=== PATIENT | female | born 1970 | race Caucasian/White ===

== ENCOUNTER 2019-02-26 19:21 | Emergency (ER) | payer OTHER ==
[~2019-02-26] VITALS: Ht 165.1 cm; Wt 61.2 kg
[~2019-02-26 19:21] MED LIST: AMOXICILLIN500 M1 PO; AZITHROMYCIN 2250 MG PO; BACTRIM DS TAB1 EACH PO; IBUPROFEN 800800 M1 PO; IBUPROFEN 800800 MG PO; NOHOMEMEDICATIONS; NORCO 5-325 TA1 EACH PO; PHENERGAN-CODE120 ML PO; PREDNISONE 20 M20 M1 PO; ULTRACET TABLE1 EACH PO; ULTRAM 50MG TAB50 MG PO
[2019-02-26 19:30] VITALS: BP 137/73
[2019-02-26] MEDS ORDERED: ACTICIN 5% CREA60 G1 TOP (20:00)
[2019-02-26] MEDS ORDERED: HYDROXYZINE HCL25 M1 PO (20:00)
== END 2019-02-26 20:12 | disposition home or self-care (01) ==
LOC: M.ERS 19:21
DX: B86 Scabies (principal); F17.210 Nicotine dependence, cigarettes, uncomplicated; Z90.710 Acquired absence of both cervix and uterus

== ENCOUNTER 2019-03-19 16:14 | Emergency (ER) | payer OTHER ==
[~2019-03-19] VITALS: Ht 160 cm; Wt 68.0 kg
[~2019-03-19 16:14] MED LIST changes: +ACTICIN 5% CREA60 G1 TOP; +HYDROXYZINE HCL25 M1 PO
[2019-03-19 16:49] VITALS: BP 147/82
[2019-03-19] MEDS ORDERED: ACTICIN 5% CREA60 G1 TOP (16:58)
== END 2019-03-19 16:49 | disposition home or self-care (01) ==
LOC: M.ERS 16:14
DX: Z20.7 Contact with and (suspected) exposure to pediculosis, acariasis and other infestations (principal); L53.9 Erythematous condition, unspecified; F17.210 Nicotine dependence, cigarettes, uncomplicated; Z90.710 Acquired absence of both cervix and uterus

== ENCOUNTER 2019-04-13 14:15 | Emergency (ER) | payer OTHER ==
[~2019-04-13] VITALS: Ht 160 cm; Wt 65.8 kg
[2019-04-13 15:17] VITALS: BP 127/80
== END 2019-04-13 15:18 | disposition home or self-care (01) ==
LOC: M.ERS 14:15
DX: Z02.79 Encounter for issue of other medical certificate (principal); F17.210 Nicotine dependence, cigarettes, uncomplicated; Z90.710 Acquired absence of both cervix and uterus

== ENCOUNTER 2019-09-22 15:17 | Emergency (ER) | payer OTHER ==
[~2019-09-22] VITALS: Ht 160 cm; Wt 65.8 kg
[2019-09-22 15:47] LABS: URINE BILIRUBIN NEGATIVE (Negative); URINE BLOOD TRACE (Negative); URINE CLARITY CLEAR; URINE COLOR YELLOW; URINE GLUCOSE-RANDOM NEGATIVE (Negative); URINE KETONES NEGATIVE (Negative); URINE LEUKOCYTES-REFLEX 1+ (Negative); URINE NITRITE-REFLEX NEGATIVE (Negative); URINE PROTEIN NEGATIVE (Negative); URINE SPECIFIC GRAVITY 1.025 (1.005-1.030); URINE UROBILINOGEN 0.2 E.U./dl (0.2-1.0)
[2019-09-22 15:56] LABS: SQUAMOUS 4-10 Moderate /LPF (0-3)
[2019-09-22 15:57] LABS: URINE RBC 0-2 Rare /HPF (0-2); URINE WBC-REFLEX 6-15 Few /HPF (0-5)
[2019-09-22 15:58] LABS: BACTERIA-REFLEX >30 Many /HPF (None Seen); CASTS None Seen /LPF (None Seen); CRYSTALS None Seen /LPF (None Seen); MUCUS >6 Heavy strn/LPF (None Seen)
[2019-09-22 16:13] LABS: ABSOLUTE BASOPHILS 0.1 thou/uL (0.0-0.2); ABSOLUTE EOSINOPHILS 0.2 thou/uL (0.0-0.7); ABSOLUTE LYMPHOCYTES 2.6 thou/uL (0.8-5.3); ABSOLUTE MONOCYTES 0.7 thou/uL (0.0-1.2); ABSOLUTE NEUTROPHILS 9.7 thou/uL (1.6-8.1); BASOPHILS 0.8 %; EOSINOPHILS 1.2 %; HEMATOCRIT 41.9 % (37.0-47.0); HEMOGLOBIN 14.3 gm/dL (12.0-15.0); LYMPHOCYTES 19.7 %; MCHC 34.1 g/dL (28.0-37.0); MCV 96.8 fL (80.0-100.0); MONOCYTES 5.2 %; MPV 7.6 fl. (7.2-11.1); NUCLEATED RBCS 0 /100WBC; PLATELET COUNT* 386 thou/uL (150-400); POLYS 73.1 %; RBC 4.33 mil/uL (4.20-5.00); RDW-CV 12.7 % (10.5-14.5); WBC 13.3 thou/uL (4.0-11.0)
[2019-09-22 16:22] LABS: CALCIUM 8.9 mg/dL (8.5-10.1); CREATININE 0.9 mg/dL (0.6-1.3); POTASSIUM 4.1 mmol/L (3.5-5.1)
[2019-09-22 16:26] LABS: ALBUMIN 3.8 g/dL (3.4-5.0); TOTAL BILIRUBIN 0.3 mg/dL (<0.1-1.0); TOTAL PROTEIN 7.9 g/dL (6.4-8.2)
[2019-09-22 17:24] LABS: APTT 27.5 Seconds (25.0-31.3); PROTIME 10.2 Seconds (9.20-11.50)
[2019-09-22] MEDS ORDERED: BACTRIM DS TAB1 EACH PO (18:05)
[2019-09-22] MEDS ORDERED: TYLENOL WITH CO1 TA1 PO (18:07)
[2019-09-22] MEDS ORDERED: ONDANSETRON ODT4 MG PO (18:07)
[2019-09-22 18:31] VITALS: BP 107/53
--- NOTE | 2019-09-23 15:01 | EKG ---
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
== END 2019-09-22 18:33 | disposition home or self-care (01) ==
LOC: M.ERS 15:17
PROVIDERS: Physician Assistant
DX: N39.0 Urinary tract infection, site not specified (principal); R42 Dizziness and giddiness; F17.210 Nicotine dependence, cigarettes, uncomplicated; Z90.710 Acquired absence of both cervix and uterus